=== PATIENT | female | born 1975 | race Caucasian/White ===

== ENCOUNTER → 2019-09-27 | Outpatient (CLI) | payer OTHER ==
--- NOTE | 2019-09-27 12:11 | Diagnostic Imaging Report ---
INDICATION: Left knee pain. Time of exam 11:27 AM 3 views left knee were obtained. There are medial and patellofemoral compartment degenerative changes with mild joint space narrowing and marginal spurring. Lateral compartments are well maintained. The articular surfaces are smooth. No fracture, dislocation or effusion is detected. IMPRESSION: Degenerative changes. No acute bony abnormality is detected. Dictated by: Dictated on workstation # [id number]
== END ==
LOC: RAD FS 11:19
PROVIDERS: ATTEND Nurse Practitioner Family
DX: M17.12 Unilateral primary osteoarthritis, left knee (principal)
CPT/HCPCS: 73562

== ENCOUNTER → 2021-01-22 | Outpatient (CLI) | payer OTHER | LOC: RAD 12:30 | PROVIDERS: ATTEND Allergy & Immunology | DX: R93.7 Abnormal findings on diagnostic imaging of other parts of musculoskeletal system (principal) ==